=== PATIENT | male | born 1950 | race Caucasian/White ===

== ENCOUNTER 2016-11-06 14:04 | Emergency (ER) | payer SELFPAY ==
[~2016-11-06] VITALS: Ht 190.5 cm; Wt 153.3 kg
[2016-11-06 15:12] VITALS: BP 167/97
== END 2016-11-06 17:14 | disposition home or self-care (01) ==
LOC: ER 14:08
DX: S70.12XA Contusion of left thigh, initial encounter (principal); S61.502A Unspecified open wound of left wrist, initial encounter; I10 Essential (primary) hypertension; R51 Headache; M54.2 Cervicalgia; M25.512 Pain in left shoulder; V43.52XA Car driver injured in collision with other type car in traffic accident, initial encounter; Y93.89 Activity, other specified; Y92.89 Other specified places as the place of occurrence of the external cause; Y99.8 Other external cause status
CPT/HCPCS: 70450; 72125

== ENCOUNTER 2017-03-17 19:05 | Emergency (ER) | payer MEDICARE ==
[~2017-03-17] VITALS: Ht 190.5 cm; Wt 147.0 kg
[2017-03-17 20:10] VITALS: BP 158/80
[2017-03-17] MEDS ORDERED: KETOROLAC TROMETH 60MG/2ML VIAL IM ONE (20:30)
[2017-03-17] MEDS ORDERED: BACITRACIN TOP OINT 1 UD PKG TOP ONE ×2 (20:40→20:41)
== END 2017-03-17 21:17 | disposition home or self-care (01) ==
LOC: ER 19:08
DX: S00.03XA Contusion of scalp, initial encounter (principal); S00.91XA Abrasion of unspecified part of head, initial encounter; S50.811A Abrasion of right forearm, initial encounter; I10 Essential (primary) hypertension; V49.49XA Driver injured in collision with other motor vehicles in traffic accident, initial encounter; Y93.89 Activity, other specified; Y99.8 Other external cause status; Y92.410 Unspecified street and highway as the place of occurrence of the external cause
CPT/HCPCS: 70450; 74176; 96372; 99284; J1885

== ENCOUNTER 2018-11-01 18:23 | Emergency (ER) | payer MEDICARE ==
[~2018-11-01] VITALS: Ht 190.5 cm; Wt 149.7 kg
[2018-11-01 22:24] VITALS: BP 170/85
== END 2018-11-01 22:25 | disposition home or self-care (01) ==
LOC: ER 18:26
DX: H35.032 Hypertensive retinopathy, left eye (principal); F17.290 Nicotine dependence, other tobacco product, uncomplicated
CPT/HCPCS: 70450